=== PATIENT | male | born 1985 | race Two or more races ===

== ENCOUNTER 2019-10-09 15:45 | Inpatient (IN) | payer OTHER ==
[2019-10-09 17:56] VITALS: BMI 24.6
--- NOTE | 2019-10-09 18:22 | HP ---
CIWA Score Nausea/Vomitin-Cont. Nausea/Vomiting Muscle Tremors: None Anxiety: 4-Mod. Anxious/Guarded Agitation: 3 Paroxysmal Sweats: No Perspiration Orientation: 0-Oriented Tacttile Disturbances: 1-Very Mild Itch/Numbness Auditory Disturbances: 0-None Visual Disturbances: 0-None Headache: 0-None Present CIWA-Ar Total Score: 15 - Admission Criteria OASAS Guidelines: Admission for Medically Managed Detox: Requires at least one of the followin. CIWA greater than 12 2. Seizures within the past 24 hours 3. Delirium tremens within the past 24 hours 4. Hallucinations within the past 24 hours 5. Acute intervention needed for co occurring medical disorder 6. Acute intervention needed for co occurring psychiatric disorder 7. Severe withdrawal that cannot be handled at a lower level of care (continued vomiting, continued diarrhea, abnormal vital signs) requiring intravenous medication and/or fluids 8. Admitting History and Physical - Admission History of Present Illness: Pt is a 34 M transitioning to F with PMHx of HIV (2004 on meds), presenting for detox from alcohol. Pt also uses cocaine and marijuana. Stumbled after drinking and fell and lost front teeth about 3 days ago, blackouts, never had seizures. Was at [facility] detox last 2011. Has been at [email or web address] [address] mandated 2018. Never been in outpt detox. " Wants to be addressed as Anastasia" is still a male. Now pt says it is getting in the way of transitioning from Male to Female, taking spironolactone and estrodione Getting meds from PCP, [facility], [address] [place] [address] Avenue Tired of living life of drinking and smoking, wants to be better for 2019 ETOH Last drink today 12 noon Has been drinking everyday for a month Drinking ETOH, Started at 18 years, got worse over past month Drinks beer inclusive although never liked beer in past Was here last 2011 for alcohol, was sniffing cocaine then Drinks 2 pints of vodka a day Sober longest for 1 year, restarted 1 months Pt had been working at a [employer], worked last 1 month ago, stopped work at the [employer] because she made Nicotine Smokes 1PPD THC- in Urine Smokes daily 35 dollars worth Since 16 years CHICHI- in Urine Now uses the pipe to smoke 8 ball Last use today Uses cocaine daily Social hx Recently lost twin sister, 2017 she had a pacemaker after open heart surgery, they were identical twins who smoked weed Has had a lot of emotional ups and downs including recent leaving of father. Lives in an apartment via public assistance Pt with EKG- regular vent 88 bpm, normal axis and intervals prolonged QTC- 493- dcd, vistaril and methacarbamol T wave flattening in inferior leads, Evidence of hypertrophy, possible Q waves precordial leads History Source: Patient Limitations to Obtaining History: No Limitations - Past Medical History Infectious Disease: Yes: HIV Psych: Yes: Addictions - Smoking History Smoking history: Current every day smoker Have you smoked in the past 12 months: Yes Aproximately how many cigarettes per day: 10 - Alcohol/Substance Use Hx Alcohol Use: Yes History of Substance Use: reports: Cocaine, Heroin, Marijuana - Social History Usual Living Arrangement: Yes: Alone Do you think of yourself as: Hernandez, Lesbian or Homosexual ADL: Independent History of Recent Travel: No Admission [facility] Allergies/Adverse Reactions: Allergies Allergy/AdvReac Type Severity Reaction Status Date / Time No Known Allergies Allergy Verified 10/09/19 17:49 - Ebola screening Have you traveled outside of the country in the last 21 days: No Have you had contact with anyone from an Ebola affected area: No - Review of Systems Constitutional: No Symptoms Reported EENT: reports: Other (Swollen L lip since fall with chipped upper teeth) Respiratory: reports: Cough Cardiac: reports: No Symptoms Reported GI: reports: Vomiting : reports: No Symptoms Reported Musculoskeletal: reports: No Symptoms Reported Integumentary: reports: No Symptoms Reported Neuro: reports: No Symptoms reported Endocrine: reports: No Symptoms Reported Hematology: reports: No Symptoms Reported Psychiatric: reports: Anxious Patient History - Patient Medical History Hx Asthma: No Hx Chronic Obstructive Pulmonary Disease (COPD): No Hx Cardiac Disorders: No Hx Hypertension: No Hx Seizures: No Hx Diabetes: No Hx Gastrointestinal Disorders: No Hx Genitourinary Disorders: No Hx Sexually Transmitted Disorders: Yes (2004) Hx Renal Disease (ESRD): No Hx Human Immunodeficiency Virus (HIV): Yes (Norvir, Reyataz, Truvada) Hx Depression: No Hx Suicide Attempt: No Hx Schizophrenia: No Other Medical History: Denies suicidal or homicidal ideation - Patient Surgical History Past Surgical History: No Hx Neurologic Surgery: No Hx Cataract Extraction: No Hx Cardiac Surgery: No Hx Lung Surgery: No Hx Breast Surgery: No Hx Breast Biopsy: No Hx Abdominal Surgery: No Hx Appendectomy: No Hx Cholecystectomy: No Hx Genitourinary Surgery: No Hx Section: No Hx Orthopedic Surgery: No Anesthesia Reaction: No - PPD History Date: 02/28/12 - Reproductive History Patient is a Female of Child Bearing Age (11 -55 yrs old): No - Smoking Cessation Smoking history: Current every day smoker Have you smoked in the past 12 months: Yes Aproximately how many cigarettes per day: 20 Hx Chewing Tobacco Use: No Initiated information on smoking cessation: Yes 'Breaking Loose' booklet given: 10/09/19 - Substance & Tx. History Hx Alcohol Use: Yes Hx Substance Use: Yes Substance Use Type: Alcohol, Cocaine Hx Substance Use Treatment: Yes - Substances abused Cocaine Other (specify): SNIFF Amount used: $80 Age of first use: 18 Date of last use: 10/09/19 Alcohol Substance route: Oral Frequency: Daily Amount used: 1 PINT OF VODKA Age of first use: 16 Date of last use: 10/09/19 Marijuana/Hashish Substance route: Smoking Amount used: 35 dollars worth Age of first use: 16 Date of last use: 10/09/19 Admission Physical Exam [facility] - Physical General Appearance: Yes: Other (Male with female hair and make up) HEENTM: Yes: Other (Swollen L upper lip and missing front teeth) Respiratory: Yes: Chest Non-Tender, Lungs Clear Neck: Yes: Within Normal Limits Breast: Yes: Breast Exam Deferred Cardiology: Yes: S1, S2, Tachycardia Abdominal: Yes: Tenderness (mildly tender epigastrium) Genitourinary: Yes: Within Normal Limits Back: Yes: Within Normal Limits Musculoskeletal: Yes: full range of Motion, Other (L robb healing bruise) Extremities: Yes: Other (tinea unguum) Neurological: Yes: Fully Oriented, Alert, Motor Strength 5/5 Integumentary: Yes: Other (L robb scratch angeli) Lymphatic: Yes: Within Normal Limits - Diagnostic (1) Alcohol withdrawal Current Visit: Yes Status: Acute Cleared for Admission [facility] - Detox or Rehab [facility] Level of Care: Medically Supervised Detox Regimen/Protocol: Valium Claeared for Rehab Admission: No Vital Signs - Vital Signs Temperature: 96.5 F Pulse Rate: 97 Respiratory Rate: 16 Blood Pressure: 144/82 Urine Drug Screen - Results Urine drug screen results: THC-Marijuana, CHICHI-Cocaine Inpatient Rehab Admission - Rehab Decision to Admit Inpatient rehab admission?: No
[2019-10-09] MEDS ORDERED: diazePAM 5 MG TABLET PO PRN (18:53)
[2019-10-09] MEDS ORDERED: MELATONIN 5 MG TABLETS PO PRN (18:53)
[2019-10-09] MEDS ORDERED: NICOTINE POLACRILEX 2 MG GUM BUC PRN (18:53)
[2019-10-09] MEDS ORDERED: BISMUTH SUBSALICYLATE 524 MG/30 ML UD PO PRN (18:53)
[2019-10-09] MEDS ORDERED: MAG HYDROX/AL HYDROX/SIMETH 30 ML UNIT-DOSE CUP PO PRN (18:53)
[2019-10-09] MEDS ORDERED: IBUPROFEN 400 MG TABLET (FP) PO PRN (18:53)
[2019-10-09] MEDS ORDERED: ACETAMINOPHEN 325 MG TABLET (FP) PO PRN ×2 (18:53)
[2019-10-09] MEDS ORDERED: MAGNESIUM CITRATE 300 ML BOTTLE PO PRN (18:53)
[2019-10-09] MEDS ORDERED: MAGNESIUM HYDROX 2400MG/30ML ORAL SUSPENSION 30 ML CUP PO PRN (18:53)
[2019-10-09] MEDS ORDERED: MENTHOL/PHENOL 1 EACH UD MM PRN (18:53)
[2019-10-09] MEDS ORDERED: BACITRACIN 15 GM TUBE TOPICAL OINTMENT TP ONE (19:13)
--- NOTE | 2019-10-09 19:13 | PN ---
"Teaching Attending Note Name of Resident: Brandy Mckeon ATTENDING PHYSICIAN STATEMENT I saw and evaluated the patient. I reviewed the resident's note and discussed the case with the resident. I agree with the resident's findings and plan as documented. SUBJECTIVE: 34 y.o. M2F TG pt here requesting detox from etoh use , reports 2 pints vodka/ day ,denies seizures, blackouts , + tremors cocaine - daily cannabis- daily tobacco : daily PMHX : HIV , M2F OBJECTIVE: wnwd , irritable Vital Signs - 24 hr 10/09/19 10/09/19 10/09/19 17:40 18:47 19:03 Temperature 96.5 F L 96.5 F L 96.5 F L Pulse Rate 97 H 97 H 97 H Respiratory 16 16 16 Rate Blood Pressure 144/82 144/82 144/82 Search Terms: anne-marie triplett, 1985 Search Date: 10/09/2019 07:18:12 PM This report was requested by: Honey Aldana | Reference #: [id number] There are no results for the search terms that you entered. ASSESSMENT AND PLAN: AUD - Valium detox"
[2019-10-09] MEDS: PATIENT'S OWN MEDICATION (NON-FORMULARY) (Estradiol [Estradiol] 2 MG) PO SCH (20:23)
[2019-10-09] MEDS: PATIENT'S OWN MEDICATION (NON-FORMULARY) (Spironolactone [Spironolactone] 100 MG) PO SCH (23:20)
[2019-10-09] MEDS: THIAMINE HCL 100 MG TABLET (FP) PO SCH (23:27)
[2019-10-09] MEDS: diazePAM 5 MG TABLET PO SCH (23:27)
[2019-10-10] MEDS: diazePAM 5 MG TABLET PO SCH ×3 (06:21→21:14)
--- NOTE | 2019-10-10 09:14 | CONSULT ---
[facility] Psychiatric Consult - Data Date of interview: 10/10/19 Psychiatric History: Patient was approached at bedside. Told senior copywriter:" I don't need a psychiatrist"
--- NOTE | 2019-10-10 09:22 | EKG ---
Test Reason : Blood Pressure : / mmHG Vent. Rate : 088 BPM Atrial Rate : 088 BPM P-R Int : 102 ms QRS Dur : 094 ms QT Int : 408 ms P-R-T Axes : 036 054 043 degrees QTc Int : 493 ms SINUS RHYTHM NONSPECIFIC T WAVE ABNORMALITY PROLONGED QT ABNORMAL ECG NO PREVIOUS ECGS AVAILABLE Confirmed by MD Kleber, Mazin ([id number]) on 10/10/2019 9:22:26 AM Referred By: Confirmed By:Mazin Shahid MD
[2019-10-10 10:19] LABS: HEMATOCRIT 35.4 % (35.4-49); HEMOGLOBIN 11.5 GM/dL (11.7-16.9); MCHC 32.6 g/dl (32.0-35.9); MEAN PLT VOLUME 7.9 fl (7.5-11.1); PLATELET COUNT 321 K/MM3 (134-434); RBC 3.97 M/mm3 (4.00-5.60); RDW 16.1 % (11.9-15.9); WHITE BLOOD COUNT 5.4 K/mm3 (4.0-10.0)
[2019-10-10 10:25] LABS: BLOOD UREA NITROGEN 17.4 mg/dL (7-18); CREATININE 1.2 mg/dL (0.55-1.3); POTASSIUM 4.1 mmol/L (3.5-5.1)
[2019-10-10 10:26] LABS: ALBUMIN 2.7 g/dl (3.4-5.0); BILIRUBIN,TOTAL 0.2 mg/dL (0.2-1); TOT PROT 5.9 g/dl (6.4-8.2)
[2019-10-10] MEDS: NICOTINE 21 MG/24 HOURS TOPICAL PATCH TD SCH (11:05)
[2019-10-10] MEDS: PRENATAL VITAMINS W/ FOLIC ACID TABLET (FP) PO SCH (11:06)
[2019-10-10] MEDS: PATIENT'S OWN MEDICATION (NON-FORMULARY) (Valacyclovir Hcl [Valtrex -] 1,000 MG) PO SCH (11:06)
[2019-10-10] MEDS: PATIENT'S OWN MEDICATION (NON-FORMULARY) (Bictegrav/Emtricit/Tenofov Ala 1 EACH) PO SCH (11:07)
[2019-10-10] MEDS: PATIENT'S OWN MEDICATION (NON-FORMULARY) (Estradiol [Estradiol] 2 MG) PO SCH ×2 (11:08→21:11)
[2019-10-10] MEDS: PATIENT'S OWN MEDICATION (NON-FORMULARY) (Spironolactone [Spironolactone] 100 MG) PO SCH ×2 (11:08→21:10)
--- NOTE | 2019-10-10 11:18 | PN ---
S CIWA - CIWA Score Nausea/Vomitin-No Nausea/No Vomiting Muscle Tremors: 3 Anxiety: 2 Agitation: 3 Paroxysmal Sweats: 3 Orientation: 0-Oriented Tacttile Disturbances: 0-None Auditory Disturbances: 0-None Visual Disturbances: 0-None Headache: 0-None Present CIWA-Ar Total Score: 11 S Progress Note (SOAP) Subjective: sweats tired agitation irritable body aches Objective: 10/10/19 11:17 Vital Signs Temperature 98.2 F 10/10/19 09:35 Pulse Rate 93 H 10/10/19 09:35 Respiratory Rate 18 10/10/19 09:35 Blood Pressure 143/64 10/10/19 09:35 O2 Sat by Pulse Oximetry (%) Laboratory Tests 10/10/19 10/10/19 08:00 08:00 WBC 5.4 RBC 3.97 L Hgb 11.5 L Hct 35.4 D MCV 89.0 MCH 29.0 MCHC 32.6 RDW 16.1 H Plt Count 321 D MPV 7.9 Sodium 143 Potassium 4.1 Chloride 108 H Carbon Dioxide 27 Anion Gap 8 BUN 17.4 Creatinine 1.2 Est GFR (CKD-EPI)AfAm 91.53 Est GFR (CKD-EPI)NonAf 78.97 Random Glucose 96 Calcium 9.0 Total Bilirubin 0.2 AST 40 H ALT 47 Alkaline Phosphatase 87 Total Protein 5.9 L Albumin 2.7 L labs noted aaox3 ambulating no acute distress Assessment: 10/10/19 11:18 withdrawals Plan: continue detox increase fluids
[2019-10-10] MEDS ORDERED: PNEUMOC 13-VAL CONJ-DIP CRM/PF 0.5 ML DISP.SYRIN IM ONE (12:02)
[2019-10-10] MEDS ORDERED: FLU VACCINE QUAD 60 MCG/0.5 ML (MDV 19-20) IM ONE (12:02)
[2019-10-10] MEDS: THIAMINE HCL 100 MG TABLET (FP) PO SCH (21:11)
[2019-10-11] MEDS: diazePAM 5 MG TABLET PO SCH ×2 (05:37→18:27)
--- NOTE | 2019-10-11 10:59 | PN ---
S CIWA - CIWA Score Nausea/Vomitin-No Nausea/No Vomiting Muscle Tremors: 2 Anxiety: 1-Mildly Anxious Agitation: 0-Normal Activity Paroxysmal Sweats: No Perspiration Orientation: 0-Oriented Tacttile Disturbances: 0-None Auditory Disturbances: 0-None Visual Disturbances: 0-None Headache: 0-None Present CIWA-Ar Total Score: 3 BHS Progress Note (SOAP) Subjective: feeling better little sweats Objective: 10/11/19 10:58 Vital Signs Temperature 98.2 F 10/11/19 09:24 Pulse Rate 96 H 10/11/19 09:24 Respiratory Rate 18 10/11/19 09:24 Blood Pressure 123/72 10/11/19 09:24 O2 Sat by Pulse Oximetry (%) aaox3 ambulating no acute distress Assessment: 10/11/19 10:59 mild withdrawals Plan: continue detox d/c in am
[2019-10-11] MEDS: PATIENT'S OWN MEDICATION (NON-FORMULARY) (Spironolactone [Spironolactone] 100 MG) PO SCH ×2 (11:05→22:06)
[2019-10-11] MEDS: NICOTINE 21 MG/24 HOURS TOPICAL PATCH TD SCH (11:05)
[2019-10-11] MEDS: PRENATAL VITAMINS W/ FOLIC ACID TABLET (FP) PO SCH (11:05)
[2019-10-11] MEDS: PATIENT'S OWN MEDICATION (NON-FORMULARY) (Bictegrav/Emtricit/Tenofov Ala 1 EACH) PO SCH (11:05)
[2019-10-11] MEDS: PATIENT'S OWN MEDICATION (NON-FORMULARY) (Estradiol [Estradiol] 2 MG) PO SCH ×2 (11:05→22:06)
[2019-10-11] MEDS: PATIENT'S OWN MEDICATION (NON-FORMULARY) (Valacyclovir Hcl [Valtrex -] 1,000 MG) PO SCH (11:06)
[2019-10-11] MEDS ORDERED: LIDOCAINE VISCOUS 2% ORAL/TOP 20 ML UNIT-DOSE CUP MM PRN (15:49)
[2019-10-11] MEDS: THIAMINE HCL 100 MG TABLET (FP) PO SCH (22:05)
[2019-10-12] MEDS ORDERED: diazePAM 5 MG TABLET PO ONE (06:00)
--- NOTE | 2019-10-12 09:37 | DS ---
[facility] Detox Discharge Summary Admission Date: 10/09/19 Discharge Date: 10/12/19 - History Present History: Alcohol Dependence - Physical Exam Results Vital Signs: Vital Signs Temperature 97.7 F 10/12/19 06:46 Pulse Rate 81 10/12/19 06:46 Respiratory Rate 18 10/12/19 06:46 Blood Pressure 125/70 10/12/19 06:46 O2 Sat by Pulse Oximetry (%) Pertinent Admission Physical Exam Findings: pt arrived in withdrawals Vital Signs Temperature 97.7 F 10/12/19 06:46 Pulse Rate 81 10/12/19 06:46 Respiratory Rate 18 10/12/19 06:46 Blood Pressure 125/70 10/12/19 06:46 O2 Sat by Pulse Oximetry (%) Laboratory Tests 10/10/19 10/10/19 10/10/19 08:00 08:00 08:00 WBC 5.4 RBC 3.97 L Hgb 11.5 L Hct 35.4 D MCV 89.0 MCH 29.0 MCHC 32.6 RDW 16.1 H Plt Count 321 D MPV 7.9 Sodium 143 Potassium 4.1 Chloride 108 H Carbon Dioxide 27 Anion Gap 8 BUN 17.4 Creatinine 1.2 Est GFR (CKD-EPI)AfAm 91.53 Est GFR (CKD-EPI)NonAf 78.97 Random Glucose 96 Calcium 9.0 Total Bilirubin 0.2 AST 40 H ALT 47 Alkaline Phosphatase 87 Total Protein 5.9 L Albumin 2.7 L RPR Titer Nonreactive TB (QFT) Incubation TB Test (QFT) Nil TB Test (QFT) Mitogen TB Test (QFT) Antigen TB Test (QFT) TB Positive Criteria 10/10/19 08:00 WBC RBC Hgb Hct MCV MCH MCHC RDW Plt Count MPV Sodium Potassium Chloride Carbon Dioxide Anion Gap BUN Creatinine Est GFR (CKD-EPI)AfAm Est GFR (CKD-EPI)NonAf Random Glucose Calcium Total Bilirubin AST ALT Alkaline Phosphatase Total Protein Albumin RPR Titer TB (QFT) Incubation TB Test (QFT) Nil 0.11 TB Test (QFT) Mitogen >10.00 TB Test (QFT) Antigen 0.11 TB Test (QFT) Negative TB Positive Criteria pt is aaox3 ambulating no acute distress no s/s of withdrawals - Treatment Hospital Course: Detox Protocol Followed, Detoxed Safely, Responded well, Discharged Condition Good, Rehab Referral Accepted Patient has Accepted a Rehab Referral to: pt referred to inpatient rehab; [facility] - Medication Discharge Medications: Ambulatory Orders Bictegrav/Emtricit/Tenofov Ala [Biktarvy 50-200-25 mg Tablet] 1 each PO DAILY Estradiol 2 mg PO BID 10/09/19 Spironolactone 100 mg PO BID 10/09/19 Valacyclovir HCl [Valtrex -] 1,000 mg PO DAILY 10/09/19 - Diagnosis (1) Alcohol withdrawal Current Visit: Yes Status: Chronic Qualifiers: Complication of substance-induced condition: uncomplicated Qualified Code(s ): F10.230 - Alcohol dependence with withdrawal, uncomplicated - AMA Did Patient Leave Against Medical Advice: No
[2019-10-12] MEDS: PRENATAL VITAMINS W/ FOLIC ACID TABLET (FP) PO SCH (10:25)
[2019-10-12] MEDS: PATIENT'S OWN MEDICATION (NON-FORMULARY) (Valacyclovir Hcl [Valtrex -] 1,000 MG) PO SCH (10:25)
[2019-10-12] MEDS: PATIENT'S OWN MEDICATION (NON-FORMULARY) (Spironolactone [Spironolactone] 100 MG) PO SCH (10:26)
[2019-10-12] MEDS: PATIENT'S OWN MEDICATION (NON-FORMULARY) (Bictegrav/Emtricit/Tenofov Ala 1 EACH) PO SCH (10:26)
[2019-10-12] MEDS: PATIENT'S OWN MEDICATION (NON-FORMULARY) (Estradiol [Estradiol] 2 MG) PO SCH (10:26)
[2019-10-12] MEDS: NICOTINE 21 MG/24 HOURS TOPICAL PATCH TD SCH (10:27)
[2019-10-12 13:19] VITALS: BP 144/82; PULSE 74; TEMP 97.3
== END 2019-10-12 13:01 | disposition other institution (70) | DRG 774 ==
LOC: YASAS 15:45 → Y6N 19:01
PROVIDERS: ADMIT Allergy & Immunology; ATTEND Allergy & Immunology
PROC: HZ2ZZZZ Detoxification Services for Substance Abuse Treatment (ICD-10-PCS; principal; 2019-10-09)
DX: F10.230 Alcohol dependence with withdrawal, uncomplicated (principal); F14.20 Cocaine dependence, uncomplicated; F12.20 Cannabis dependence, uncomplicated; F17.210 Nicotine dependence, cigarettes, uncomplicated; F64.0 Transsexualism; Z21 Asymptomatic human immunodeficiency virus [HIV] infection status; S00.511A Abrasion of lip, initial encounter; K08.109 Complete loss of teeth, unspecified cause, unspecified class; W19.XXXA Unspecified fall, initial encounter; Y93.89 Activity, other specified; Y92.89 Other specified places as the place of occurrence of the external cause; Y99.8 Other external cause status
CPT/HCPCS: 36415; 80053; 85027; 86480; 86593; 90670; 93005; 93010; G0008; G0009; Q2036

== ENCOUNTER 2019-10-12 12:02 | Inpatient (IN) | payer OTHER ==
[2019-10-12] MEDS ORDERED: ACETAMINOPHEN 325 MG TABLET (FP) PO PRN (14:31)
[2019-10-12] MEDS ORDERED: MAG HYDROX/AL HYDROX/SIMETH 30 ML UNIT-DOSE CUP PO PRN (14:31)
[2019-10-12] MEDS ORDERED: MENTHOL/PHENOL 1 EACH UD MM PRN (14:31)
[2019-10-12] MEDS ORDERED: P-EPHED 60MG/TRIPROLIDI 2.5MG TABLET PO PRN (14:31)
[2019-10-12] MEDS ORDERED: NICOTINE POLACRILEX 4 MG GUM BUC PRN (14:31)
[2019-10-12] MEDS ORDERED: LOPERAMIDE HCL 2 MG CAPSULE PO PRN (14:31)
[2019-10-12] MEDS ORDERED: IBUPROFEN 400 MG TABLET (FP) PO PRN (14:31)
[2019-10-12] MEDS ORDERED: MAGNESIUM HYDROX 2400MG/30ML ORAL SUSPENSION 30 ML CUP PO PRN (14:31)
[2019-10-12] MEDS ORDERED: MAGNESIUM CITRATE 300 ML BOTTLE PO PRN (14:31)
[2019-10-12] MEDS ORDERED: guaiFENesin 200 MG/10 ML 10 ML UNIT-DOSE CUPS PO PRN (14:31)
--- NOTE | 2019-10-12 14:31 | HP ---
[facility] Rehab Assess/Revision - Admission History Admitted to Rehab from: [address] - Vital signs Vital Signs: Vital Signs Period Temp Pulse Resp BP Sys/Garcia Pulse Ox Last 24 Hr 98.1 F 98 18 127/77 - Findings Detox History & Physical reviewed: Yes Concur with findings: Yes Inpatient Rehab Admission - Rehab Decision to Admit Inpatient rehab admission?: Yes - Initial Determination Are CD services needed?: Yes Free of communicable disease: Yes Not in need of hospitalization: Yes - Rehab Admission Criteria Previous failed treatment: Yes Poor recovery environment: Yes Comorbidities: Yes Lacks judgement: Yes Patient is meeting Inpatient Rehab admission criteria:: Yes
[2019-10-12] MEDS ORDERED: LIDOCAINE VISCOUS 2% ORAL/TOP 20 ML UNIT-DOSE CUP MM PRN (14:32)
[2019-10-12] MEDS: THIAMINE HCL 100 MG TABLET (FP) PO SCH (21:39)
[2019-10-12] MEDS: ESTRADIOL 2 MG PO SCH (21:43)
[2019-10-12] MEDS: PATIENT'S OWN MEDICATION (NON-FORMULARY) (Spironolactone [Spironolactone] 100 MG) PO SCH (21:43)
[2019-10-12] MEDS ORDERED: MELATONIN 5 MG TABLETS PO PRN (22:00)
--- NOTE | 2019-10-13 08:37 | PN ---
S Progress Note Note: Pt is a 34 y/o transgender male to female with a hx of BHUPENDRA admitted to rehab from [address] [place] [address] on 10/13/19. Pt reports primary care with [facility] with Dr. Parisi. Vital Signs - 24 hr 10/12/19 10/13/19 10/13/19 13:42 00:30 03:30 Temperature 98.1 F Pulse Rate 98 H Respiratory 18 18 18 Rate Blood Pressure 127/77 10/13/19 07:31 Temperature 98.1 F Pulse Rate 92 H Respiratory 18 Rate Blood Pressure 132/72 Alert o x 3 saniya oob ambulating with steady gait A/P new rehab patient Maintain safety
[2019-10-13] MEDS: VALACYCLOVIR 1 GM PO SCH (10:29)
[2019-10-13] MEDS: NICOTINE 21 MG/24 HOURS TOPICAL PATCH TD SCH (10:29)
[2019-10-13] MEDS: ESTRADIOL 2 MG PO SCH ×2 (10:29→22:12)
[2019-10-13] MEDS: PRENATAL VITAMINS W/ FOLIC ACID TABLET (FP) PO SCH (10:29)
[2019-10-13] MEDS ORDERED: PT OWN MED DRAWER 7, Y5N ONE (10:31)
[2019-10-13] MEDS: PATIENT'S OWN MEDICATION (NON-FORMULARY) (Bictegrav/Emtricit/Tenofov Ala 1 EACH) PO SCH (10:31)
[2019-10-13] MEDS: PATIENT'S OWN MEDICATION (NON-FORMULARY) (Spironolactone [Spironolactone] 100 MG) PO SCH ×2 (10:31→22:12)
[2019-10-13] MEDS: THIAMINE HCL 100 MG TABLET (FP) PO SCH (22:12)
[2019-10-14] MEDS: VALACYCLOVIR 1 GM PO SCH (09:52)
[2019-10-14] MEDS: PRENATAL VITAMINS W/ FOLIC ACID TABLET (FP) PO SCH (09:52)
[2019-10-14] MEDS: PATIENT'S OWN MEDICATION (NON-FORMULARY) (Spironolactone [Spironolactone] 100 MG) PO SCH ×2 (09:53→21:30)
[2019-10-14] MEDS: ESTRADIOL 2 MG PO SCH ×2 (09:53→21:29)
[2019-10-14] MEDS: PATIENT'S OWN MEDICATION (NON-FORMULARY) (Bictegrav/Emtricit/Tenofov Ala 1 EACH) PO SCH (09:53)
[2019-10-14] MEDS: NICOTINE 21 MG/24 HOURS TOPICAL PATCH TD SCH (09:54)
[2019-10-14] MEDS: THIAMINE HCL 100 MG TABLET (FP) PO SCH (21:28)
[2019-10-15 07:34] VITALS: TEMP 98.3
[2019-10-15] MEDS: PRENATAL VITAMINS W/ FOLIC ACID TABLET (FP) PO SCH (10:12)
[2019-10-15] MEDS: PATIENT'S OWN MEDICATION (NON-FORMULARY) (Bictegrav/Emtricit/Tenofov Ala 1 EACH) PO SCH (10:12)
[2019-10-15] MEDS: PATIENT'S OWN MEDICATION (NON-FORMULARY) (Spironolactone [Spironolactone] 100 MG) PO SCH ×2 (10:12→21:16)
[2019-10-15] MEDS: VALACYCLOVIR 1 GM PO SCH (10:13)
[2019-10-15] MEDS: ESTRADIOL 2 MG PO SCH ×2 (10:13→21:16)
[2019-10-15] MEDS: NICOTINE 21 MG/24 HOURS TOPICAL PATCH TD SCH (10:14)
[2019-10-15] MEDS: THIAMINE HCL 100 MG TABLET (FP) PO SCH (21:16)
[2019-10-16] MEDS: NICOTINE 21 MG/24 HOURS TOPICAL PATCH TD SCH (09:44)
[2019-10-16] MEDS: PATIENT'S OWN MEDICATION (NON-FORMULARY) (Bictegrav/Emtricit/Tenofov Ala 1 EACH) PO SCH (09:44)
[2019-10-16] MEDS: ESTRADIOL 2 MG PO SCH ×2 (09:44→21:15)
[2019-10-16] MEDS: PATIENT'S OWN MEDICATION (NON-FORMULARY) (Spironolactone [Spironolactone] 100 MG) PO SCH ×2 (09:45→21:16)
[2019-10-16] MEDS: PRENATAL VITAMINS W/ FOLIC ACID TABLET (FP) PO SCH (09:45)
[2019-10-16] MEDS: VALACYCLOVIR 1 GM PO SCH (09:45)
[2019-10-16] MEDS: THIAMINE HCL 100 MG TABLET (FP) PO SCH (21:15)
[2019-10-17 09:33] VITALS: BP 125/85; PULSE 103
[2019-10-17] MEDS: PRENATAL VITAMINS W/ FOLIC ACID TABLET (FP) PO SCH (09:59)
[2019-10-17] MEDS: NICOTINE 21 MG/24 HOURS TOPICAL PATCH TD SCH (10:00)
[2019-10-17] MEDS: VALACYCLOVIR 1 GM PO SCH (10:00)
[2019-10-17] MEDS: ESTRADIOL 2 MG PO SCH (10:00)
[2019-10-17] MEDS: PATIENT'S OWN MEDICATION (NON-FORMULARY) (Spironolactone [Spironolactone] 100 MG) PO SCH (10:00)
[2019-10-17] MEDS: PATIENT'S OWN MEDICATION (NON-FORMULARY) (Bictegrav/Emtricit/Tenofov Ala 1 EACH) PO SCH (10:00)
--- NOTE | 2019-10-17 11:56 | DS ---
[facility] Rehab Discharge Summary - [facility] Rehab Discharge Summary Admission Date: 10/12/19 Discharge Date: 10/17/19 - History Present History: Alcohol dependence Pertinent Past History: History of Present Illness: Pt is a 34 M transitioning to F with PMHx of HIV (2004 on meds). Pt also uses cocaine and marijuana. Stumbled after drinking and fell and lost front teeth about 3 days ago, blackouts, never had seizures. Was at [facility] detox last 2011. Has been at [employer] [address] mandated 2017. Never been in outpt detox. " Wants to be addressed as Ziamjami" is still a male. Now pt says it is getting in the way of transitioning from Male to Female, taking spironolactone and estrodione Getting meds from PCP, [facility], [address] [place] [address] Tired of living life of drinking and smoking, wants to be better for 2019 ETOH Has been drinking everyday for a month Drinking ETOH, Started at 18 years, got worse over past month Drinks beer inclusive although never liked beer in past Was here last 2011 for alcohol, was sniffing cocaine then Drinks 2 pints of vodka a day Sober longest for 1 year, restarted 1 months Pt had been working at a [employer], worked last 1 month ago, stopped work at the [employer] because she made Nicotine Smokes 1PPD THC- in Urine Smokes daily 35 dollars worth Since 16 years CHICHI- in Urine Now uses the pipe to smoke 8 ball Last use today Uses cocaine daily Social hx Recently lost twin sister, 2017 she had a pacemaker after open heart surgery, they were identical twins who smoked weed Has had a lot of emotional ups and downs including recent leaving of father. Lives in an apartment via public assistance Pt with EKG- regular vent 88 bpm, normal axis and intervals prolonged QTC- 493- dcd, vistaril and methacarbamol T wave flattening in inferior leads, Evidence of hypertrophy, possible Q waves precordial leads - Discharge Physical Exam Vital Signs: Vital Signs Temperature 98.3 F 10/17/19 07:15 Pulse Rate 103 H 10/17/19 09:32 Respiratory Rate 16 10/17/19 07:15 Blood Pressure 125/85 10/17/19 09:32 O2 Sat by Pulse Oximetry (%) Pertinent Admission Physical Exam Findings: Physical General Appearance: no apparent distress HEENTM: Normocephalic, PERRLA, missing front teeth Respiratory: Lungs Clear Neck: supple Cardiology: S1, S2, Abdominal: +BS Musculoskeletal: full range of Motion, Neurological: Cn 2- 12 intact - Treatment Discharge Condition: Outpatient referral accepted (Will return to [facility]. medically stable for discharge.) Hospital Course: patient attended groups and was adherent to her medication regimen and treatment plan. - Medication Discharge Medications: Ambulatory Orders Bictegrav/Emtricit/Tenofov Ala [Biktarvy 50-200-25 mg Tablet] 1 each PO DAILY Estradiol 2 mg PO BID 10/09/19 Spironolactone 100 mg PO BID 10/09/19 Valacyclovir HCl [Valtrex -] 1,000 mg PO DAILY 10/09/19 - Medication-Assisted Treatment (MAT) Medication-Assisted Treatment (MAT): No - Discharge Instructions Diet, activity, other medical instructions: Diet: as tolerated Activity: as tolerated Other medical instructions: Please follow up with aftercare plan and medical care. - Diagnosis (1) Alcohol withdrawal Current Visit: No Status: Chronic Qualifiers: Complication of substance-induced condition: uncomplicated Qualified Code(s ): F10.230 - Alcohol dependence with withdrawal, uncomplicated - Follow-up Referral Minutes to complete discharge: 20 - AMA Did Patient Leave Against Medical Advice: No Additional Comments: patient stated she did not need any prescriptions transmitted to her pharmacy.
== END 2019-10-17 13:25 | disposition home or self-care (01) | DRG 772 ==
LOC: YASAS 12:02 → Y3E 12:03
PROVIDERS: ADMIT Neuromusculoskeletal Medicine & OMM; ATTEND Neuromusculoskeletal Medicine & OMM
PROC: HZ42ZZZ Group Counseling for Substance Abuse Treatment, Cognitive-Behavioral (ICD-10-PCS; principal; 2019-10-12)
DX: F10.20 Alcohol dependence, uncomplicated (principal); F14.20 Cocaine dependence, uncomplicated; F12.20 Cannabis dependence, uncomplicated; F17.210 Nicotine dependence, cigarettes, uncomplicated; F64.0 Transsexualism; Z21 Asymptomatic human immunodeficiency virus [HIV] infection status